=== PATIENT | female | born 1995 | race Caucasian/White ===

== ENCOUNTER → 2016-11-20 | Outpatient (CLI) | payer SELFPAY | LOC: RAD 07:55 | PROVIDERS: ATTEND Nurse Practitioner Women's Health | DX: Z34.02 Encounter for supervision of normal first pregnancy, second trimester (principal) | CPT/HCPCS: 76805 ==

== ENCOUNTER → 2017-01-11 | Outpatient (CLI) | payer SELFPAY | LOC: MERGE 15:40 → RAD 15:40 | PROVIDERS: ATTEND Nurse Practitioner Women's Health | DX: Z34.02 Encounter for supervision of normal first pregnancy, second trimester (principal) | CPT/HCPCS: 76805 ==

== ENCOUNTER → 2017-04-19 | Outpatient (CLI) | payer MEDICAID ==
[2017-04-19 11:32] LABS: PARTIAL THROMBOPLASTIN TIME 27.9 SEC (23.5-35.8); PROTHROMBIN TIME 11.9 SEC (11.4-15.4)
== END ==
LOC: LAB 10:58
DX: O09.33 Supervision of pregnancy with insufficient antenatal care, third trimester (principal)
CPT/HCPCS: 36415; 85610; 85730

== ENCOUNTER 2017-04-28 09:38 | Outpatient (CLI) | payer MEDICAID ==
[2017-04-28 10:22] LABS: AMNISURE (ROM) NEGATIVE (NEGATIVE)
[2017-04-28 10:33] LABS: APPEARANCE,URINE SLIGHTLY-CLOUDY; BILIRUBIN,URINE NEGATIVE (NEGATIVE); GLUCOSE, URINE NEGATIVE (NEGATIVE); KETONES,URINE NEGATIVE (NEGATIVE); LEUKOCYTE ESTERASE,URINE NEGATIVE (NEGATIVE); NITRITE,URINE NEGATIVE (NEGATIVE); PROTEIN,URINE NEGATIVE (NEGATIVE); URINE SPECIFIC GRAVITY 1.004; UROBILINOGEN,URINE NEGATIVE mg/dL (<2.0)
[2017-04-28 10:56] LABS: URINE BARBITURATES SCREEN NEGATIVE; URINE METHADONE SCREEN NEGATIVE; URINE OPIATES LOW NEGATIVE; URINE PHENCYCLIDINE SCREEN NEGATIVE
== END 2017-04-28 10:38 | disposition home health service (06) ==
LOC: LC 09:38
PROVIDERS: ATTEND Student in an Organized Health Care Education/Training Program
PROC: 4A1HXCZ Monitoring of Products of Conception, Cardiac Rate, External Approach (ICD-10-PCS; principal; 2017-04-28)
DX: O47.1 False labor at or after 37 completed weeks of gestation (principal); Z3A.38 38 weeks gestation of pregnancy
CPT/HCPCS: 59025; 80307; 81005; 84112

== ENCOUNTER 2017-05-19 17:57 | Inpatient (IN) | payer MEDICAID ==
--- NOTE | 2017-05-19 18:17 | Non Stress Test Report ---
Non Stress Test Datetime Report Generated by CPN: 05/19/2017 18:17 DEMOGRAPHIC Test Number: 1 EGA NST: 38.1 INDICATION Indication for Study: Ordered by Provider MONITORING Monitor Explained: Monitor Explained; Test Explained; Patient Verbalized Understanding Time on Monitor: 04/28/2017 09:52 Time off Monitor: 04/28/2017 10:32 NST Duration: 40 NST INTERVENTIONS NST Interventions: IV Fluids Physician Notified NST: Emmel BABY A: [id number] BABY A Movement : Present Contraction Frequency : irregular FHR Baseline : 120 Accelerations : 15X15 Decelerations : None Variability : Moderate 6-25bpm NST Review: Meets Criteria for Reactive NST NST Review and Verified By : Lizz Pagan RN NST Results: Reactive NST REPORT Report Trigger: Send Report
[2017-05-19] MEDS ORDERED: DINOPROSTONE 10 MG VAGINAL INSERT.SR ONE (18:57)
[2017-05-19] MEDS ORDERED: DINOPROSTONE 10 MG VAGINAL INSERT.SR PV PRN (19:03)
[2017-05-19] MEDS ORDERED: RINGERS SOLUTION,LACTATED 1,000 ML IV PRN (19:04)
[2017-05-19] MEDS ORDERED: ACETAMINOPHEN 325 MG TABLET PO PRN (19:05)
[2017-05-19] MEDS ORDERED: OXYTOCIN/NORMAL SALINE 20 UNIT/1,000 ML RTUINJ IV PRN (19:05)
[2017-05-19] MEDS ORDERED: MAG HYDROX/AL HYDROX/SIMETH SUSP 30 ML UDCUP PO PRN (19:05)
[2017-05-19 19:07] LABS: ABSOLUTE LYMPHOCYTES (AUTO) 1.4 10^3/uL (0.5-4.7); ABSOLUTE MONOCYTES (AUTO) 0.8 10^3/uL (0.1-1.4); ABSOLUTE NEUT (AUTO) 6.6 10^3/uL (1.7-8.2); BASOPHILS % (AUTO) 0.3 % (0-2); EOSINOPHILS % (AUTO) 0.5 % (0-6); HEMATOCRIT 35.9 % (36.0-47.0); HEMOGLOBIN 12.3 g/dL (12.0-15.5); LYMPHOCYTES % (AUTO) 16.1 % (13-45); MEAN CORPUSCULAR HEMOGLOBIN 31.3 pg (27.0-33.4); MEAN CORPUSCULAR HGB CONC 34.1 g/dL (32.0-36.0); MEAN CORPUSCULAR VOLUME 92 fl (80-97); MONOCYTES % (AUTO) 8.8 % (3-13); RED BLOOD COUNT 3.91 10^6/uL (3.72-5.28); RED CELL DISTRIBUTION WIDTH 12.2 % (11.5-14.0); SEGMENTED NEUTROPHILS % (AUTO) 74.3 % (42-78); WHITE BLOOD COUNT 8.9 10^3/uL (4.0-10.5)
[2017-05-19 19:09] LABS: APPEARANCE,URINE SLIGHTLY-CLOUDY; BILIRUBIN,URINE NEGATIVE (NEGATIVE); GLUCOSE, URINE NEGATIVE (NEGATIVE); KETONES,URINE NEGATIVE (NEGATIVE); LEUKOCYTE ESTERASE,URINE NEGATIVE (NEGATIVE); NITRITE,URINE NEGATIVE (NEGATIVE); PROTEIN,URINE NEGATIVE (NEGATIVE); URINE SPECIFIC GRAVITY 1.008; UROBILINOGEN,URINE NEGATIVE mg/dL (<2.0)
[2017-05-19 19:22] LABS: URINE BARBITURATES SCREEN NEGATIVE; URINE METHADONE SCREEN NEGATIVE; URINE OPIATES LOW NEGATIVE; URINE PHENCYCLIDINE SCREEN NEGATIVE
[2017-05-19] MEDS ORDERED: DESMOPRESSIN NASAL SPRAY 100 MCG/1 ML 5 ML NASL PRN (19:31)
[2017-05-19] MEDS: ZOLPIDEM TARTRATE 5 MG TABLET PO PRN (23:10)
[2017-05-19] MEDS ORDERED: ZOLPIDEM TARTRATE 5 MG TABLET ONE (23:12)
--- NOTE | 2017-05-20 08:25 | PDOC CONSULTATION ---
Consultation Consult Date: 05/20/17 Attending physician:: MARTY VILLA Consult reason:: VWD with impending delivery History of Present Illness Admission Date/PCP: 05/19/17 17:[address] [facility] Patient complains of: VWD History of Present Illness: ASHVIN CRUZ is a 22 year old female with history of Von Willebrand's Disease , she was dx around age 5-6. Her twin sister was hospitalized at that time, she remembers she was in for 3 weeks for some reason, that is when her twin got the dx of VWD. Since then neither herself or twin had a major surgery, her twin sister recently had a normal vaginal delivery without the use of DDAVP. They apparently had the nasal spray at bedside but never had to use it. The pt herself had a superficial skin cyst removal w/out any issues but no other surgical interventions. She denies any spontaneous bleeding, difficulty stopping bleeding after minor cuts, or heavy menses. Past Medical History Hematology: Reports: Other Hematology History Note: VWD hx as in HPI Past Surgical History Past Surgical History: Reports: Other - superficial cyst removal Social History Information Source: Patient Smoking Status: Never Smoker Frequency of Alcohol Use: None Hx Recreational Drug Use: No Drugs: None Hx Prescription Drug Abuse: No - Advance Directive Resuscitation Status: Full Code Family History Family History: Reviewed & Not Pertinent Parental Family History Reviewed: Yes Children Family History Reviewed: Yes Sibling(s) Family History Reviewed.: Yes Medication/Allergy Home Medications: Pnv No.122/Iron/Folic Acid [ Multi Tablet] 1 tab PO DAILY 04/28/17 Allergies/Adverse Reactions: wheat Allergy (Mild, Verified 05/19/17 18:51) Review of Systems Constitutional: ABSENT: chills, fever(s), headache(s), weight gain, weight loss Eyes: ABSENT: visual disturbances Ears: ABSENT: hearing changes Cardiovascular: ABSENT: chest pain, dyspnea on exertion, edema, orthropnea, palpitations Respiratory: ABSENT: cough, hemoptysis Gastrointestinal: ABSENT: abdominal pain, constipation, diarrhea, hematemesis, hematochezia, nausea, vomiting Genitourinary: ABSENT: dysuria, hematuria Musculoskeletal: ABSENT: joint swelling Integumentary: ABSENT: rash, wounds Neurological: ABSENT: abnormal gait, abnormal speech, confusion, dizziness, focal weakness, syncope Psychiatric: ABSENT: anxiety, depression, homidical ideation, suicidal ideation Endocrine: ABSENT: cold intolerance, heat intolerance, polydipsia, polyuria Hematologic/Lymphatic: ABSENT: easy bleeding, easy bruising Physical Exam Vital Signs: Intake & Output 05/19/17 05/20/17 05/21/17 06:59 06:59 06:59 Weight 76 kg General appearance: PRESENT: no acute distress, well-developed, well-nourished Head exam: PRESENT: atraumatic, normocephalic Eye exam: PRESENT: conjunctiva pink, EOMI, PERRLA. ABSENT: scleral icterus Ear exam: PRESENT: normal external ear exam Mouth exam: PRESENT: moist, tongue midline Neck exam: ABSENT: carotid bruit, JVD, lymphadenopathy, thyromegaly Respiratory exam: PRESENT: clear to auscultation dorota. ABSENT: rales, rhonchi, wheezes Cardiovascular exam: PRESENT: RRR. ABSENT: diastolic murmur, rubs, systolic murmur Pulses: PRESENT: normal dorsalis pedis pul Vascular exam: PRESENT: normal capillary refill GI/Abdominal exam: PRESENT: normal bowel sounds, soft. ABSENT: distended, guarding, mass, organolmegaly, rebound, tenderness Rectal exam: PRESENT: deferred Extremities exam: PRESENT: full ROM. ABSENT: calf tenderness, clubbing, pedal edema Neurological exam: PRESENT: alert, awake, oriented to person, oriented to place , oriented to time, oriented to situation, CN II-XII grossly intact. ABSENT: motor sensory deficit Psychiatric exam: PRESENT: appropriate affect, normal mood. ABSENT: homicidal ideation, suicidal ideation Skin exam: PRESENT: dry, intact, warm. ABSENT: cyanosis, rash Results Laboratory Results: 05/19/17 18:40 05/19/17 05/19/17 05/19/17 18:40 18:40 18:40 WBC 8.9 RBC 3.91 Hgb 12.3 Hct 35.9 L MCV 92 MCH 31.3 MCHC 34.1 RDW 12.2 Plt Count 205 Seg Neutrophils % 74.3 Lymphocytes % 16.1 Monocytes % 8.8 Eosinophils % 0.5 Basophils % 0.3 Absolute Neutrophils 6.6 Absolute Lymphocytes 1.4 Absolute Monocytes 0.8 Absolute Eosinophils 0.0 Absolute Basophils 0.0 Urine Color YELLOW Urine Appearance SLIGHTLY-CLOUDY Urine pH 6.0 Ur Specific Marshall 1.008 Urine Protein NEGATIVE Urine Glucose (UA) NEGATIVE Urine Ketones NEGATIVE Urine Blood NEGATIVE Urine Nitrite NEGATIVE Ur Leukocyte Esterase NEGATIVE Blood Type O POSITIVE Antibody Screen NEGATIVE Assessment & Plan - Diagnosis (1) Von Willebrand disease, type I Is this a current diagnosis for this admission?: Yes Plan: Likely a mild Type 1 VWD. Will be ok with delivery and likely will be ok w/out any intervention for . If C/S will be needed, will need DDAVP nasal spray at bedside for possibility of post op bleeding but don't recommend that we give it pre-op as her VWD levels are likely normal. Most pts w/ mild VWD will actually have elevated levels of VWF during and don't require any intervention. She will need f/u in our clinic as outpt. - Time Time Spent: Greater than 70 Minutes Critical Time spent with patient: 35 or more minutes - Inpatient Certification Based on my medical assessment, after consideration of the patient's comorbidities, presenting symptoms, or acuity I expect that the services needed warrant INPATIENT care.: Yes I certify that my determination is in accordance with my understanding of Medicare's requirements for reasonable and necessary INPATIENT services [42 CFR 412.3e].: Yes Medical Necessity: Other - delivery
[2017-05-20] MEDS ORDERED: MISOPROSTOL 0.1 MG TABLET ONE (09:36)
--- NOTE | 2017-05-20 16:13 | L&D Progress Notes ---
PROGRESS NOTES Datetime Report Generated by CPN: 05/20/2017 16:12 PROGRESS NOTE Comment: 22 yo admitted for induction/ cervical ripening last night EDC 05/12/17 EGA 41.2 history of Von willebrands disease failed 1 hour/ passed 3 hour abdomen nontender FHTs average variability irregular uterine contractions cervix cl/long/-3 reviewed cervical ripening agents with pt and spouse pt to shower place cervidil poc reviewed anticipate a prolonged induction VAGINAL EXAM Dilatation: 0 Dilatation: 0 Effacement: 0 Effacement: 0 Station: -3 Station: -3 FETUS A FHR - Baseline: 130 Monitoring: External US Variability: Moderate 6-25bpm Accelerations: 15X15 FHR Category: Category I Presentation: Vertex SIGNATURE SIGNATURE: [id number] SIGNATURE: [id number] Assignment: Calin Hopper DO Signature: with User ID: [email or web address] : with User ID: [email or web address]
[2017-05-20] MEDS ORDERED: DINOPROSTONE 10 MG VAGINAL INSERT.SR PV ONE (17:30)
[2017-05-20] MEDS ORDERED: DINOPROSTONE 10 MG VAGINAL INSERT.SR ONE (17:41)
[2017-05-20] MEDS ORDERED: ACETAMINOPHEN 325 MG TABLET PO PRN (21:08)
[2017-05-20] MEDS ORDERED: ACETAMINOPHEN 325 MG TABLET ONE (21:13)
[2017-05-20] MEDS ORDERED: ZOLPIDEM TARTRATE 5 MG TABLET ONE (21:14)
[2017-05-20] MEDS: ZOLPIDEM TARTRATE 5 MG TABLET PO PRN (21:15)
[2017-05-21] MEDS ORDERED: OXYTOCIN/NORMAL SALINE 20 UNIT/1,000 ML RTUINJ ONE (06:39)
--- NOTE | 2017-05-21 08:49 | PDOC PROGRESS REPORT ---
Subjective Progress Note for:: 05/21/17 Subjective:: Doing ok, still not much change in cervix, still in labor Physical Exam Vital Signs: Intake & Output 05/20/17 05/21/17 05/22/17 06:59 06:59 06:59 Weight 76 kg General appearance: PRESENT: no acute distress, well-developed, well-nourished Head exam: PRESENT: atraumatic, normocephalic Eye exam: PRESENT: conjunctiva pink, EOMI, PERRLA. ABSENT: scleral icterus Ear exam: PRESENT: normal external ear exam Mouth exam: PRESENT: moist, tongue midline Neck exam: ABSENT: carotid bruit, JVD, lymphadenopathy, thyromegaly Respiratory exam: PRESENT: clear to auscultation dorota. ABSENT: rales, rhonchi, wheezes Cardiovascular exam: PRESENT: RRR. ABSENT: diastolic murmur, rubs, systolic murmur Pulses: PRESENT: normal dorsalis pedis pul Vascular exam: PRESENT: normal capillary refill GI/Abdominal exam: PRESENT: normal bowel sounds, soft. ABSENT: distended, guarding, mass, organolmegaly, rebound, tenderness Rectal exam: PRESENT: deferred Extremities exam: PRESENT: full ROM. ABSENT: calf tenderness, clubbing, pedal edema Neurological exam: PRESENT: alert, awake, oriented to person, oriented to place , oriented to time, oriented to situation, CN II-XII grossly intact. ABSENT: motor sensory deficit Psychiatric exam: PRESENT: appropriate affect, normal mood. ABSENT: homicidal ideation, suicidal ideation Skin exam: PRESENT: dry, intact, warm. ABSENT: cyanosis, rash Results Laboratory Results: 05/19/17 18:40 Assessment & Plan - Diagnosis (1) Von Willebrand disease, type I Is this a current diagnosis for this admission?: Yes Plan: May need C/S if failure to progress. Recommend no intervention prior to C/S but if bleeding after use DDAVP nasal spray. Her dose will be 1 spray (should be 150mg/spray) each nostril (since her Kg wt >50). May repeat in 12 hours if necessary for bleeding. Will follow. But unlikely she will need it. - Time Time Spent with patient: 35 or more minutes Critical Time spent with patient: 35 or more minutes
[2017-05-21] MEDS ORDERED: NALBUPHINE HCL INJ 10 MG/1 ML AMPULE ONE (09:46)
--- NOTE | 2017-05-21 10:29 | L&D Progress Notes ---
PROGRESS NOTES Datetime Report Generated by CPN: 05/21/2017 10:28 PROGRESS NOTE Impression: Normal Progression of Labor Procedures: Sterile Vag Exam Plan: Continue Present Management; Induction Informed Consent Obtained: Vaginal Delivery; Induction of Labor; Risks, Benefits and Alternatives Discussed Vital Signs : Reviewed; Within Normal Limits Comment: Pt admitted on Wednesday fir IOL for post JACK at 41+3ega. Cervidil placed on Wednesday due to cvx closed, Cytotec yesterday and cervidil last pm. Now -3 and cooks catheter placed. Anticiapte . Cont cervical ripening. VAGINAL EXAM Dilatation: 1 Effacement: 50 Station: -3 Contractions: q 2 FETUS A FHR - Baseline: 125 Monitoring: External US Variability: Moderate 6-25bpm Accelerations: 15X15 Decelerations: None FHR Category: Category I FETUS C SIGNATURE: [id number] Signature: with User ID: [email or web address]
[2017-05-21] MEDS ORDERED: BUPIVACAINE HCL 0.25 % INJ/PF (2.5 MG/1 ML) 30 ML VIAL ONE (13:39)
[2017-05-21] MEDS ORDERED: FENTANYL/BUPIVACAINE/NS/PF 200 MCG/100 ML RTUINJ EPI ONE (13:39)
[2017-05-21] MEDS ORDERED: EPHEDRINE SULFATE INJ 50 MG/1 ML AMPULE ONE (13:39)
--- NOTE | 2017-05-21 14:10 | L&D Progress Notes ---
PROGRESS NOTES Datetime Report Generated by CPN: 05/21/2017 14:10 PROGRESS NOTE Impression: Normal Progression of Labor; Rupture of Membranes Procedures: Artificial ROM; Sterile Vag Exam Plan: Continue Present Management; Induction Informed Consent Obtained: Vaginal Delivery; Risks, Benefits and Alternatives Discussed Vital Signs : Reviewed; Within Normal Limits Comment: Pt called out because chaparro bul fell out. cvx now /- Now chaparro bulb cervix - not in active labor. Will continue with pitocin and IOL. VAGINAL EXAM Dilatation: 5 Effacement: 80 Station: -1 MEMBRANES Membranes: Ruptured Amniotic Fluid Color: Clear FETUS A FHR - Baseline: 125 Monitoring: External US Variability: Moderate 6-25bpm Accelerations: 15X15 Decelerations: None SIGNATURE SIGNATURE: [id number] Signature: with User ID: [email or web address]
[2017-05-21] MEDS ORDERED: DIPHENHYDRAMINE HCL 50 MG/ML VIAL ONE (19:23)
[2017-05-21] MEDS ORDERED: ACETAMINOPHEN 325 MG TABLET ONE (21:25)
[2017-05-21] MEDS ORDERED: AMPICILLIN SODIUM 2 GM in NORMAL SALINE 100 ML IV ONE (22:22)
[2017-05-21] MEDS ORDERED: AMPICILLIN SOD INJ 2 GM VIAL ONE (22:28)
--- NOTE | 2017-05-21 22:29 | L&D Progress Notes ---
PROGRESS NOTES Datetime Report Generated by CPN: 05/21/2017 22:29 PROGRESS NOTE Impression: Normal Progression of Labor; Chorioamnionitis Plan: Continue Present Management; Induction Informed Consent Obtained: Vaginal Delivery; Risks, Benefits and Alternatives Discussed Vital Signs : Reviewed Comment: Temp 101.7 Tylenol already given. FHR 160. Maternal Heart rate 90's. Dx with chorioamnionitis. No abx allergies. Begin Gent/Amp. Orders written. Pt is just getting in active labor. Pitocin only at 2 and needs to be increased. Anticipate . FETUS C SIGNATURE: [id number] Signature: with User ID: [email or web address]
[2017-05-21] MEDS ORDERED: GENTAMICIN SULFATE INJ 80 MG/2 ML VIAL ONE ×3 (23:20→23:52)
[2017-05-22] MEDS ORDERED: BUPIVACAINE HCL 0.25 % INJ/PF (2.5 MG/1 ML) 30 ML VIAL ONE (00:02)
[2017-05-22] MEDS ORDERED: FENTANYL/BUPIVACAINE/NS/PF 200 MCG/100 ML RTUINJ EPI ONE (00:02)
[2017-05-22] MEDS ORDERED: EPHEDRINE SULFATE INJ 50 MG/1 ML AMPULE ONE (00:02)
--- NOTE | 2017-05-22 00:14 | L&D Progress Notes ---
PROGRESS NOTES Datetime Report Generated by CPN: 05/22/2017 00:14 PROGRESS NOTE Impression: Normal Progression of Labor Procedures: Sterile Vag Exam Plan: Continue Present Management; Induction; Anticipate Vaginal Delivery Informed Consent Obtained: Vaginal Delivery; Risks, Benefits and Alternatives Discussed Vital Signs : Reviewed; Within Normal Limits Comment: Pt reports feeling constant pressure. Cvx with significant change to 9/90/+1. Anticpate . CAT I FHR tracing. REassuring FWB. Continue with pitocin and position change. VAGINAL EXAM Dilatation: 9 Effacement: 90 Station: 1 Contractions: q 1 to 4 MEMBRANES Amniotic Fluid Color: Clear FETUS A FHR - Baseline: 150 Monitoring: External US Variability: Moderate 6-25bpm Accelerations: 15X15 Decelerations: None FHR Category: Category I FETUS C SIGNATURE: [id number] Signature: with User ID: [email or web address]
[2017-05-22] MEDS ORDERED: GLYCERIN/WITCH HAZEL LEAF 1 EACH MED..PAD TP PRN (01:22)
[2017-05-22] MEDS ORDERED: MEASLES,MUMPS&RUBELLA VACC/PF 0.5 ML VIAL SUBCUT PRN (01:22)
[2017-05-22] MEDS ORDERED: MAGNESIUM HYDROXIDE SUSP 30 ML UDCUP PO PRN (01:22)
[2017-05-22] MEDS ORDERED: BENZOCAINE/MENTHOL AEROSOL SPRAY 56 ML TOP PRN (01:22)
[2017-05-22] MEDS ORDERED: PSEUDOEPHEDRINE HCL 30 MG TABLET PO PRN (01:22)
[2017-05-22] MEDS ORDERED: DIPH/PERTUSS(ACELL)/TETANUS VAC/PF 0.5 ML SYR (>=10YO) IM PRN (01:22)
[2017-05-22] MEDS ORDERED: OXYTOCIN/NORMAL SALINE 20 UNIT/1,000 ML RTUINJ IV PRN (01:22)
[2017-05-22] MEDS ORDERED: ACETAMINOPHEN 650 MG SUPP.RECT PR PRN (01:22)
[2017-05-22] MEDS ORDERED: ZOLPIDEM TARTRATE 5 MG TABLET PO PRN (01:22)
[2017-05-22] MEDS ORDERED: PROMETHAZINE HCL INJ 25 MG/1 ML VIAL IV PRN (01:22)
[2017-05-22] MEDS ORDERED: DIPHENHYDRAMINE HCL 25 MG CAPSULE PO PRN (01:22)
[2017-05-22] MEDS ORDERED: DIBUCAINE 1% OINTMENT 28 GM TP PRN (01:22)
[2017-05-22] MEDS ORDERED: PROMETHAZINE HCL 25 MG TABLET PO PRN (01:22)
[2017-05-22] MEDS ORDERED: PROMETHAZINE HCL 25 MG SUPP.RECT PR PRN (01:22)
[2017-05-22] MEDS ORDERED: ACETAMINOPHEN WITH CODEINE #3 TABLET PO PRN (01:22)
[2017-05-22] MEDS ORDERED: NA PHOS,M-B/NA PHOS,DI-BA (ADULT) 133 ML ENEMA PR PRN (01:22)
[2017-05-22] MEDS ORDERED: MISOPROSTOL 0.2 MG TABLET ONE (01:48)
[2017-05-22] MEDS ORDERED: AMPICILLIN SODIUM 1 GM in NORMAL SALINE 50 ML IV SCH (04:00)
--- NOTE | 2017-05-22 04:12 | Admission Physical ---
Datetime Report Generated by CPN: 05/22/2017 04:12 CURRENT ADMISSION Hx Assessment: The History has been Reviewed and is Current Chief Complaint: Scheduled Induction of Labor Indication for Induction: Postterm Admit Plan: Initiate Labor Induction Protocol ALLERGIES Medication Allergies: No Medication Allergies: wheat/UT (05/19/2017) Medication Allergies: wheat/UT (04/28/2017) Latex: No Latex Allergies Food Allergies: Wheat OBSTETRICAL HISTORY EDC: 05/11/2017 00:00 : 1 Para: 0 Term: 0 : 0 SAB: 0 IAB: 0 Ectopic: 0 Livin Cesareans: 0 VBACs: 0 Multiple Births: 0 Gestational Diabetes: No Rh Sensitization: No Incompetent Cervix: No LAQUITA: No Infertility: No ART Treatment: No Uterine Anomaly: No IUGR: No Hx Previous C/S: No Macrosomia: No Hx Loss/Stillborn: No PIH: No Hx : No Placenta Previa/Abruption: No Depression/PP Depression: No PTL/PROM: No Post Hemorrhage: No Current Procedures: Ultrasound Obstetrical History Comments: G1 current SEE RECORDS Alcohol: No Marijuana : No Cocaine: No Other Illicit Drugs: No Cigarettes: Former Smoker. [id number] Cigarette Frequency: < 5 per day Cigarette Comments: quit 1 year ago MEDICAL HISTORY Diabetes: No Blood Transfusion: No Pulmonary Disease (Asthma, TB): No Breast Disease: No Hypertension: No Machined Parts Metal Sprayer Surgery: No Heart Disease: No Hosp/Surgery: Yes Autoimmune Disorder: No Anesthetic Complications: No Kidney Disease: No Abnormal Pap Smear: No Neuro/Epilepsy: No Psychiatric Disorders: No Other Medical Diseases: No Hepatitis/Liver Disease: No Significant Family History: No Varicosities/Phlebitis: No Trauma/Violence : No Thyroid Dysfunction: No Medical History Comments: cyst removed from L back with local Von Willebrand--pt has always been asymtomatic INFECTIOUS HISTORY Gonorrhea: No Genital Herpes: No Chlamydia: No Tuberculosis: No Syphilis: No Hepatitis: No HIV/AIDS Exposure: No Rash or Viral Illness: No HPV: No PHYSICAL EXAM General: Normal HEENT: Normal Neurologic: Normal Thyroid: Normal Heart: Normal Lungs: Normal Breast: Normal Back: Normal Abdomen: Normal Genitourinary Exam: Normal Extremities: Normal DTRs: Normal Pelvic Type: Adequate Physical Exam Comments: Pt with h/o von willebrands disease diagnosed as a child ...does not have ddavp at home and no recent bleeding problems. 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 VAGINAL EXAM Dilatation: 9 Dilatation: 5 Dilatation: 1 Dilatation: 0 Dilatation: 0 Effacement: 90 Effacement: 80 Effacement: 50 Effacement: 0 Effacement: 0 Station: 1 Station: -1 Station: -3 Station: -3 Station: -3 Contraction Comments: q 1 to 4 Contraction Comments: q 2 MEMBRANES Membranes: Ruptured Amniotic Fluid Color: Clear Amniotic Fluid Color: Clear FETUS A EGA: 41.1 Monitoring: External US FHR Category: Category I Presentation: Vertex Admit Comment: IUP at 41 wks with h/o von Willebrands disease -cervidl tonight to start induction -case d/w Dr. Galindo of hematology...with have vasopressin nasal spray atbedside in event of increased bleeding PLANS FOR LABOR AND DELIVERY Labor and Delivery: None Pain Management: None Feeding Preference: Breast Benefit of Breast Feed Discussed: Yes Circumcision: N/A INFORMED CONSENT Informed Consent Obtained: Vaginal Delivery; Risks, Benefits and Alternatives Discussed Informed Consent Obtained: Vaginal Delivery; Risks, Benefits and Alternatives Discussed Informed Consent Obtained: Vaginal Delivery; Risks, Benefits and Alternatives Discussed Informed Consent Obtained: Vaginal Delivery; Induction of Labor; Risks, Benefits and Alternatives Discussed Signature: with User ID: [email or web address]
[2017-05-22] MEDS ORDERED: AMPICILLIN SOD INJ 2 GM VIAL ONE (04:53)
[2017-05-22] MEDS ORDERED: GENTAMICIN SULFATE INJ 80 MG/2 ML VIAL ONE (04:54)
[2017-05-22] MEDS ORDERED: AMPICILLIN SOD INJ 1 GM VIAL ONE (04:55)
[2017-05-22] MEDS: GENTAMICIN SULFATE INJ 80 MG/2 ML VIAL IV SCH ×2 (05:50→15:02)
[2017-05-22] MEDS: IBUPROFEN 800 MG TABLET PO SCH ×3 (05:51→22:12)
[2017-05-22] MEDS: ACETAMINOPHEN WITH CODEINE #3 TABLET PO PRN ×2 (07:18→13:34)
[2017-05-22] MEDS: PRENATAL VITAMIN W-O CA NO5/FE FUMARATE/FA CAPSULE PO SCH (10:17)
[2017-05-22] MEDS: DOCUSATE SODIUM 100 MG CAPSULE PO SCH ×2 (10:17→17:25)
[2017-05-22] MEDS: FAMOTIDINE 20 MG TABLET PO SCH ×2 (10:17→22:11)
[2017-05-22] MEDS: SENNOSIDES/DOCUSATE 8.6-50 MG 1 EACH TABLET PO SCH (10:18)
[2017-05-22] MEDS: FERROUS SULFATE 325 MG TABLET PO SCH ×2 (10:18→17:24)
--- NOTE | 2017-05-22 10:52 | PDOC PROGRESS REPORT ---
Subjective-OB Subjective: Post Delivery Day: 1 22 year old. Denies any needs at this time, is tired, voiding without difficulty, lochia is stable, pain well controlled. Physical Exam (OB) Vital Signs: Temp Pulse Resp BP Pulse Ox 98.4 F 91 16 105/55 L 98 05/22/17 08:07 05/22/17 08:07 05/22/17 08:07 05/22/17 08:07 05/22/17 08:07 - PIH/Pre-Eclampsia Clonus: Negative Headache: Absent Epigastric Pain: No Visual Changes: No - Lochia Lochia Amount: Small 10-25 ml Lochia Color: Rubra/Red - Abdomen Description: Soft, Flat Hernia Present: No Fundal Description: Firm Fundal Height: u/u - u/2 Objective-Diagnostic Laboratory: 05/19/17 18:40 Assessment and Plan(PN) - Assessment and Plan (1) Spontaneous vaginal delivery Is this a current diagnosis for this admission?: Yes Plan: routine pp care (2) Chorioamnionitis Qualifiers: Fetus number: single or unspecified fetus Trimester: third trimester Qualified Code(s): O41.1230 - Chorioamnionitis, third trimester, not applicable or unspecified Is this a current diagnosis for this admission?: Yes Plan: continue abx for 24 hours (3) Von Willebrand disease, type I Is this a current diagnosis for this admission?: Yes Plan: ddavp at bedside - Time Spent with Patient Time with patient: Less than 15 minutes Critical Time spent with patient: Less than 15 minutes Medications reviewed and adjusted accordingly: Yes - Disposition Anticipated Discharge: Home Within: within 48 hours
--- NOTE | 2017-05-22 12:00 | PDOC PROGRESS REPORT ---
Subjective Progress Note for:: 05/22/17 Subjective:: Patient had normal vaginal delivery, no bleeding post delivery, doing well Physical Exam Vital Signs: Temp Pulse Resp BP Pulse Ox 98.4 F 91 16 105/55 L 98 05/22/17 08:07 05/22/17 08:07 05/22/17 08:07 05/22/17 08:07 05/22/17 08:07 Results Laboratory Results: 05/19/17 18:40 Assessment & Plan - Diagnosis (1) Von Willebrand disease, type I Is this a current diagnosis for this admission?: Yes Plan: She will follow-up in our office most likely 2-3 months post discharge, we will like to retest her von Willebrand levels and see what her baseline is. - Time Time Spent with patient: 35 or more minutes Critical Time spent with patient: 35 or more minutes
[2017-05-22] MEDS: GENTAMICIN SULFATE IV SCH ×2 (14:21→23:44)
[2017-05-22] MEDS: DEXTROSE 5% IV SCH ×2 (14:21→23:44)
[2017-05-22] MEDS: WATER IV SCH ×2 (14:21→23:44)
[2017-05-23] MEDS: DEXTROSE 5% IV SCH (06:31)
[2017-05-23] MEDS: WATER IV SCH (06:31)
[2017-05-23] MEDS: GENTAMICIN SULFATE IV SCH (06:31)
[2017-05-23] MEDS: IBUPROFEN 800 MG TABLET PO SCH ×3 (06:57→21:08)
[2017-05-23 08:15] LABS: HEMATOCRIT 35.3 % (36.0-47.0); HEMOGLOBIN 12.1 g/dL (12.0-15.5); MEAN CORPUSCULAR HEMOGLOBIN 31.4 pg (27.0-33.4); MEAN CORPUSCULAR HGB CONC 34.2 g/dL (32.0-36.0); MEAN CORPUSCULAR VOLUME 92 fl (80-97); RED BLOOD COUNT 3.84 10^6/uL (3.72-5.28); RED CELL DISTRIBUTION WIDTH 12.6 % (11.5-14.0); WHITE BLOOD COUNT 10.6 10^3/uL (4.0-10.5)
[2017-05-23] MEDS: FAMOTIDINE 20 MG TABLET PO SCH ×2 (09:36→21:08)
[2017-05-23] MEDS: SENNOSIDES/DOCUSATE 8.6-50 MG 1 EACH TABLET PO SCH (09:36)
[2017-05-23] MEDS: PRENATAL VITAMIN W-O CA NO5/FE FUMARATE/FA CAPSULE PO SCH (09:36)
[2017-05-23] MEDS: DOCUSATE SODIUM 100 MG CAPSULE PO SCH ×2 (09:36→18:24)
[2017-05-23] MEDS: FERROUS SULFATE 325 MG TABLET PO SCH ×2 (09:36→18:25)
--- NOTE | 2017-05-23 14:25 | PDOC PROGRESS REPORT ---
Subjective-OB Subjective: Post Delivery Day: 2 22 year old. Denies any needs at this time, deo lochia is stable, pain well controlled, voiding without difficulty. Physical Exam (OB) Vital Signs: Temp Pulse Resp BP Pulse Ox 98.0 F 79 16 120/64 99 05/23/17 08:23 05/23/17 08:23 05/23/17 08:23 05/23/17 08:23 05/23/17 08:23 Intake & Output 05/22/17 05/23/17 05/24/17 06:59 06:59 06:59 Intake Total 350 Balance 350 - PIH/Pre-Eclampsia Clonus: Negative Headache: Absent Epigastric Pain: No Visual Changes: No - Lochia Lochia Amount: Scant < 10 ml Lochia Color: Rubra/Red - Abdomen Description: Soft, Round Hernia Present: No Fundal Description: Firm, Midline Fundal Height: u/u - u/2 Objective-Diagnostic Laboratory: 05/23/17 07:51 05/23/17 07:51 WBC 10.6 H RBC 3.84 Hgb 12.1 Hct 35.3 L MCV 92 MCH 31.4 MCHC 34.2 RDW 12.6 Plt Count 189 Assessment and Plan(PN) - Assessment and Plan (1) Spontaneous vaginal delivery Is this a current diagnosis for this admission?: Yes Plan: routine pp care (2) Chorioamnionitis Qualifiers: Fetus number: single or unspecified fetus Trimester: third trimester Qualified Code(s): O41.1230 - Chorioamnionitis, third trimester, not applicable or unspecified Is this a current diagnosis for this admission?: Yes Plan: abx for 24 hr (3) Von Willebrand disease, type I Is this a current diagnosis for this admission?: Yes Plan: ddavp @ bs - Time Spent with Patient Time with patient: Less than 15 minutes Critical Time spent with patient: Less than 15 minutes Medications reviewed and adjusted accordingly: Yes - Disposition Anticipated Discharge: Home Within: within 24 hours
[2017-05-24] MEDS: IBUPROFEN 800 MG TABLET PO SCH (05:25)
[2017-05-24] MEDS: ACETAMINOPHEN WITH CODEINE #3 TABLET PO PRN (07:13)
[2017-05-24 08:15] VITALS: BP 114/65
[2017-05-24] MEDS: PRENATAL VITAMIN W-O CA NO5/FE FUMARATE/FA CAPSULE PO SCH (09:35)
[2017-05-24] MEDS: SENNOSIDES/DOCUSATE 8.6-50 MG 1 EACH TABLET PO SCH (09:36)
[2017-05-24] MEDS: FERROUS SULFATE 325 MG TABLET PO SCH (09:36)
[2017-05-24] MEDS: DOCUSATE SODIUM 100 MG CAPSULE PO SCH (09:36)
[2017-05-24] MEDS: FAMOTIDINE 20 MG TABLET PO SCH (09:36)
--- NOTE | 2017-05-24 10:23 | PDOC DISCHARGE SUMMARY ---
Final Diagnosis Discharge Date: 05/24/17 - Final Diagnosis (1) Chorioamnionitis Is this a current diagnosis for this admission?: Yes (2) Spontaneous vaginal delivery Is this a current diagnosis for this admission?: Yes (3) Von Willebrand disease, type I Is this a current diagnosis for this admission?: Yes Discharge Data - Discharge Medication Home Medications: Pnv No.122/Iron/Folic Acid [ Multi Tablet] 1 tab PO DAILY 04/28/17 Reason(s) for Admission: Induction of Labor Procedures: NST Intrapartum Procedure(s): Spontaneous Vaginal Delivery - Diagnosis Test Laboratory: Temp Pulse Resp BP Pulse Ox 97.4 F 73 17 114/65 100 05/24/17 09:48 05/24/17 09:48 05/24/17 09:48 05/24/17 07:56 05/24/17 09:48 05/19/17 05/19/17 05/23/17 18:40 18:40 07:51 RBC 3.91 3.84 Hgb 12.3 12.1 Hct 35.9 L 35.3 L Urine Opiates Screen NEGATIVE - Discharge information/Instructions Discharge Activity: Activity As Tolerated, Balance Activity w/Rest, No Lifting Over 10 Pounds, No Lifting/Push/Pulling, Pelvic Rest, No tub bath Discharge Diet: Regular Disposition: HOME, SELF-CARE Follow up with: [facility] in: 4, Weeks
--- NOTE | 2017-07-26 14:17 | Delivery Summary ---
Del Sum A-C Datetime Report Generated by CPN: 07/26/2017 14:17 DELIVERY PERSONNEL DELIVERY PERSONNEL: [id number] Delivery Doctor:: Lynette Pérez CNM Nurse Micropaleontologist Certified:: Lynette Pérez CNM Anesthesiologist:: Danny Vicente MD Labor and Delivery Nurse:: Isatu Smith RN Nursery Nurse:: Stefany Swift RN MATERNAL INFORMATION Delivery Anesthesia: Epidural Medications After Delivery: Pitocin Bolus-Please Comment; Other-Please Comment Meds After Delivery Comment: cytotec 1000mg Estimated Blood Loss (ml): 250 Maternal Complications: Chorioamnionitis Provider Comments: of viable female infant over intact perineum, head delivered, loose nuchal noted, reduced, shoulders, and body delivered with ease. Infant with spontaneous cry and respirations, to maternal abdomen, cord clamped X2, cut free. Spontaneous delivery of placenta via parmar mechanism, appears intact, 3 VC, to pathology. Vagina and perineum inspected, no lacerations noted, Hemostasis acheived with external fundal massage and IV pitocin. 1000 mcg rectal cytotec given for prophylaxis. to nursery d/t maternal temp in labor, mother in stable condition, continue abx for 24 hours. LABOR SUMMARY EDC: 05/11/2017 00:00 No. Babies in Womb: 1 Labor Anesthesia: Epidural LABOR INFORMATION Reason for Induction: Post Dates Onset of Labor: 05/21/2017 21:15 Complete Dilatation: 05/22/2017 01:04 Cervical Ripening Agents: Cervidil; Mcdonough Balloon Cervical Ripening Agents: Cytotec @ 50 mcg PO Cervical Ripening Agents: Cervidil Oxytocin: Induction Group B Beta Strep: Negative Antibiotics # of Doses: 2 Antibiotics Time of Last Dose: 2230, 2350 Name of Antibiotic Given: ampicillin, gentamycin Steroids Given: None Reason Steroids Not Administered: Not Applicable MEMBRANES Membranes Rupture Method: Artificial Rupture of Membranes: 05/22/2017 13:30 Length of Rupture (hr): -11.82 Amniotic Fluid Color: Clear Amniotic Fluid Color: Clear Amniotic Fluid Color: Clear Amniotic Fluid Amount: Small Amniotic Fluid Amount: Small Amniotic Fluid Amount: Small Amniotic Fluid Odor: Normal Amniotic Fluid Odor: Normal Amniotic Fluid Odor: Normal STAGES OF LABOR Stage 1 hr: 3 Stage 1 min: 49 Stage 2 hr: 0 Stage 2 min: 37 Stage 3 hr: 0 Stage 3 min: 3 Total Time in Labor hr: 4 Total Time in Labor min: 29 VAGINAL DELIVERY Episiotomy: None Laceration #1: None Laceration Repair: Not Applicable Laceration Repair Note: n/a Sponge Count Correct: N/A Sharps Count Correct: N/A Count Comment: count correct CSECTION DELIVERY Primary Indication: N/A CSection Incision: N/A BABY A INFORMATION Infant Delivery Date/Time: 05/22/2017 01:41 Method of Delivery: Vaginal Born in Route : No : N/A Forceps: N/A Vacuum Extraction: N/A Shoulder Dystocia : No PRESENTATION/POSITION BABY A Presentation: Cephalic PLACENTA INFORMATION BABY A Placenta Delivery Time : 05/22/2017 01:44 Placenta Method of Delivery: Spontaneous Placenta Status: Delivered SCORES BABY A Heart Rate 1 min: >100 bpm Resp Effort 1 min: Good Cry Reflex Irritability 1 min: Cough or Sneeze or Pulls Away Muscle Tone 1 min: Active Motion Color 1 min: Blue/Pale Resuscitation Effort 1 min: Tactile Stimulation SCORE 1 MIN: 8 Heart Rate 5 min: >100 bpm Resp Effort 5 min: Good Cry Reflex Irritability 5 min: Cough or Sneeze or Pulls Away Muscle Tone 5 min: Active Motion Color 5 min: Body Caspar, Extremities Blue SCORE 5 MIN: 9 INFORMATION BABY A Gestational Age at Delivery: 41.1 Gestational Status: Late Term- 41- 41.6 Weeks Infant Outcome : Liveborn Condition : Stable Infant Sex: Female IDENTIFICATION BABY A Verification Date/Time: 05/22/2017 02:55 ID Band Number: [id number] Mother's Name Verified: Yes RN Verifying : RN Kang Additional Verifying Personnel: RN Stefany WEIGHT/LENGTH BABY A Birthweight (gm): 3030 Infant Weight (lb): 6 Infant Weight (oz): 11 Infant Length (in): 20.50 Length (cm): 52.07 CORD INFORMATION BABY A No. Cord Vessels: 3 Nuchal Cord : Around Neck x1, Loose Infant Suction: Mouth; Nose ASSESSMENT BABY A Infant Complications: None Skin to Skin: Yes Transferred To: Remains with Mother SIGNATURES Assignment: Ioana Rosenberg MD Signature: with User ID: [email or web address]
== END 2017-05-24 11:40 | disposition home or self-care (01) | DRG 775 ==
LOC: LR 17:57 → 2S 05-22 04:05
PROVIDERS: ADMIT Specialist; ATTEND Specialist
PROC: 4A1HXCZ Monitoring of Products of Conception, Cardiac Rate, External Approach (ICD-10-PCS; 2017-05-19)
PROC: 10E0XZZ Delivery of Products of Conception, External Approach (ICD-10-PCS; principal; 2017-05-22)
PROC: 10907ZC Drainage of Amniotic Fluid, Therapeutic from Products of Conception, Via Natural or Artificial Opening (ICD-10-PCS; 2017-05-22)
DX: O48.0 Post-term pregnancy (principal); O41.1230 Chorioamnionitis, third trimester, not applicable or unspecified; O99.12 Other diseases of the blood and blood-forming organs and certain disorders involving the immune mechanism complicating childbirth; D68.0 Von Willebrand disease; O69.81X0 Labor and delivery complicated by cord around neck, without compression, not applicable or unspecified; Z87.891 Personal history of nicotine dependence; Z91.018 Allergy to other foods; Z3A.41 41 weeks gestation of pregnancy; Z37.0 Single live birth
CPT/HCPCS: 36415; 80307; 81005; 85025; 85027; 86592; 86850; 86900; 86901; 88307; J0290; J1200; J1580; J2300; J2590; J3490